=== PATIENT | male | born 1975 | race Asian ===

== ENCOUNTER 2024-05-26 14:08 | Inpatient (IN) | payer OTHER ==
[2024-05-26 15:09] VITALS: BMI 20.9
[2024-05-26] MEDS ORDERED: DICYCLOMINE HCL 10 MG CAPSULE PO PRN (15:14)
[2024-05-26] MEDS ORDERED: NALOXONE (NARCAN) HCL 4 MG/0.1 ML SPRAY NS PRN (15:14)
[2024-05-26] MEDS ORDERED: diazePAM 5 MG TABLET PO PRN (15:14)
[2024-05-26] MEDS ORDERED: LOPERAMIDE HCL 2 MG CAPSULE PO PRN (15:14)
[2024-05-26] MEDS ORDERED: MAGNESIUM HYDROX 2400MG/30ML ORAL SUSPENSION 30 ML CUP PO PRN (15:14)
[2024-05-26] MEDS ORDERED: guaiFENesin 600 MG TABLET.ER (FP) PO PRN (15:14)
[2024-05-26] MEDS ORDERED: BISMUTH SUBSALICYLATE 524 MG/30 ML PO PRN (15:14)
[2024-05-26] MEDS ORDERED: ACETAMINOPHEN 325 MG TABLET (FP) PO PRN (15:14)
[2024-05-26] MEDS ORDERED: hydrOXYzine PAMOATE 25 MG CAPSULE (FP) PO PRN (15:14)
[2024-05-26] MEDS ORDERED: ONDANSETRON *ODT* 4 MG TABLET SL PRN (15:14)
[2024-05-26] MEDS ORDERED: IBUPROFEN 400 MG TABLET (FP) PO PRN (15:14)
[2024-05-26] MEDS ORDERED: POLYETHYLENE GLYCOL (HEALTHYLAX) 3350 17 GM PACKET PO PRN (15:14)
[2024-05-26] MEDS ORDERED: BENZONATATE 200 MG CAPSULE PO PRN (15:14)
[2024-05-26] MEDS ORDERED: BENZOCAINE/MENTHOL (CHLORASEPTIC ) LOZENGE MM PRN (15:14)
[2024-05-26] MEDS ORDERED: MAG HYDROX/AL HYDROX/SIMETH 30 ML UNIT-DOSE CUP PO PRN (15:14)
[2024-05-26] MEDS: LIDOCAINE 5% TOPICAL PATCH TP SCH (15:54)
[2024-05-26] MEDS: LIDOCAINE PATCH REMOVAL MC SCH (22:10)
[2024-05-26] MEDS: THIAMINE 100 MG TABLET PO SCH (22:11)
[2024-05-26] MEDS: METHOCARBAMOL 500 MG TABLET PO PRN (22:11)
[2024-05-26] MEDS: diazePAM 5 MG TABLET PO SCH (22:11)
[2024-05-26] MEDS: MELATONIN 5 MG TABLETS PO SCH (22:11)
[2024-05-27 09:35] LABS: CHLORIDE 108 mmol/L (98-107); POTASSIUM 4.5 mmol/L (3.5-5.1); SODIUM 138 mmol/L (136-145)
[2024-05-27 09:38] LABS: ALBUMIN 3.4 g/dl (3.4-5.0); BLOOD UREA NITROGEN 12.7 mg/dL (7-18)
[2024-05-27 09:40] LABS: ANION GAP 3 mmol/L (4-13); CALCIUM 9.2 mg/dL (8.5-10.1); CO2 26 mmol/L (21-32)
[2024-05-27 09:42] LABS: CREATININE 0.9 mg/dL (0.55-1.3); GLUCOSE,RANDOM 111 mg/dL (74-106); SGPT/ALT 29 U/L (13-61)
[2024-05-27 09:44] LABS: ALK PHOS 58 U/L (45-117); BILIRUBIN,TOTAL 0.9 mg/dL (0.2-1); SGOT/AST 26 U/L (15-37); TOT PROT 6.8 g/dl (6.4-8.2)
[2024-05-27 09:46] LABS: HEMOGLOBIN 14.5 GM/dL (11.7-16.9); MCH 31.1 pg (25.7-33.7); MCHC 32.3 g/dl (32.0-35.9); MEAN CELL VOLUME 96.5 fl (80-96); MEAN PLT VOLUME 7.4 fl (7.5-11.1); PLATELET COUNT 251 10^3/uL (134-434); RBC 4.66 M/mm3 (4.00-5.60); RDW 13.2 % (11.9-15.9); WHITE BLOOD COUNT 8.4 K/mm3 (4.0-10.0)
[2024-05-27] MEDS: PRENATAL VITAMINS W/ FOLIC ACID TABLET (FP) PO SCH (10:46)
[2024-05-28] MEDS: diazePAM 5 MG TABLET PO SCH (05:59)
[2024-05-28] MEDS: IBUPROFEN 600 MG TABLET (FP) PO PRN (18:30)
[2024-05-29] MEDS: diazePAM 5 MG TABLET PO SCH (05:45)
[2024-05-29 09:29] VITALS: BP 132/78; PULSE 84; RESP 18; TEMP 97.6
[2024-05-29] MEDS: NALOXONE (NYS OPIOID OVERDOSE PROGRAM) 4 MG/0.1 ML SPRAY NS SCH (10:27)
[2024-05-30] MEDS ORDERED: diazePAM 5 MG TABLET PO ONE (06:00)
== END 2024-05-29 10:28 | disposition home or self-care (01) | DRG 775 ==
LOC: YASAS 14:08 → Y3N 15:13
PROVIDERS: ADMIT Allergy & Immunology; ATTEND Surgery
PROC: HZ2ZZZZ Detoxification Services for Substance Abuse Treatment (ICD-10-PCS; principal; 2024-05-26)
DX: F10.230 Alcohol dependence with withdrawal, uncomplicated (principal); F12.20 Cannabis dependence, uncomplicated; F17.210 Nicotine dependence, cigarettes, uncomplicated; F41.9 Anxiety disorder, unspecified; G35 Multiple sclerosis; Z87.11 Personal history of peptic ulcer disease; Z59.01 Sheltered homelessness; Z56.0 Unemployment, unspecified
CPT/HCPCS: 36415; 80053; 80305; 80307; 85027; 86780; 93005; 93010

== ENCOUNTER 2024-09-19 18:27 | Inpatient (IN) | payer OTHER ==
[2024-09-19] MEDS ORDERED: IBUPROFEN 400 MG TABLET (FP) PO PRN (20:34)
[2024-09-19] MEDS ORDERED: NICOTINE POLACRILEX 2 MG LOZENGE BC PRN (20:34)
[2024-09-19] MEDS ORDERED: NICOTINE POLACRILEX 2 MG GUM BUC PRN (20:34)
[2024-09-19] MEDS ORDERED: BENZOCAINE/MENTHOL (CHLORASEPTIC ) LOZENGE MM PRN (20:34)
[2024-09-19] MEDS ORDERED: BENZONATATE 200 MG CAPSULE PO PRN (20:34)
[2024-09-19] MEDS ORDERED: BISMUTH SUBSALICYLATE 524 MG/30 ML PO PRN (20:34)
[2024-09-19] MEDS ORDERED: LOPERAMIDE HCL 2 MG CAPSULE PO PRN (20:34)
[2024-09-19] MEDS ORDERED: guaiFENesin 600 MG TABLET.ER (FP) PO PRN (20:34)
[2024-09-19] MEDS ORDERED: ACETAMINOPHEN 325 MG TABLET (FP) PO PRN (20:34)
[2024-09-19] MEDS ORDERED: DICYCLOMINE HCL 10 MG CAPSULE PO PRN (20:34)
[2024-09-19] MEDS ORDERED: ONDANSETRON *ODT* 4 MG TABLET SL PRN (20:34)
[2024-09-19] MEDS ORDERED: MAG HYDROX/AL HYDROX/SIMETH 30 ML UNIT-DOSE CUP PO PRN (20:34)
[2024-09-19] MEDS ORDERED: NALOXONE (NARCAN) HCL 4 MG/0.1 ML SPRAY NS PRN (20:34)
[2024-09-19] MEDS ORDERED: IBUPROFEN 600 MG TABLET (FP) PO PRN (20:34)
[2024-09-19] MEDS ORDERED: POLYETHYLENE GLYCOL (HEALTHYLAX) 3350 17 GM PACKET PO PRN (20:34)
[2024-09-19] MEDS: PERMETHRIN 5% TOPICAL CREAM 60 GM TUBE TP SCH (21:25)
[2024-09-19] MEDS: MELATONIN 5 MG TABLETS PO SCH (21:35)
[2024-09-19] MEDS: diazePAM 5 MG TABLET PO PRN (21:35)
[2024-09-19] MEDS: THIAMINE 100 MG TABLET PO SCH (21:35)
[2024-09-19] MEDS ORDERED: PERMETHRIN 5% TOPICAL CREAM 60 GM TUBE ONE (21:48)
[2024-09-19] MEDS: diazePAM 5 MG TABLET PO SCH (22:26)
[2024-09-20 09:43] LABS: HEMATOCRIT 44.8 % (40.1-51.0); HEMOGLOBIN 14.1 g/dL (13.7-17.5); MCHC 31.5 g/dl (32.3-36.5); MEAN CELL VOLUME 97.4 fl (79.0-92.2); MEAN PLT VOLUME 9.1 fl (9.4-12.4); PLATELET COUNT # 277 x10^3/uL (163-337); RDW 12.8 % (12.1-15.9)
[2024-09-20 09:45] LABS: POTASSIUM 4.7 mmol/L (3.5-5.1)
[2024-09-20 09:59] LABS: ALBUMIN 3.4 g/dl (3.4-5.0); BLOOD UREA NITROGEN 15.1 mg/dL (7-18); CALCIUM 8.9 mg/dL (8.5-10.1)
[2024-09-20 10:04] LABS: TOT PROT 6.7 g/dl (6.4-8.2)
[2024-09-20] MEDS: PRENATAL VITAMINS W/ FOLIC ACID TABLET (FP) PO SCH (10:07)
[2024-09-20] MEDS: HYDROCORTISONE 1% TOPICAL OINT 30 GM TUBE TP SCH (22:49)
[2024-09-20] MEDS: METHOCARBAMOL 500 MG TABLET PO PRN (22:49)
[2024-09-21] MEDS: diazePAM 5 MG TABLET PO SCH ×2 (06:12→13:36)
[2024-09-21] MEDS: MAGNESIUM HYDROX 2400MG/30ML ORAL SUSPENSION 30 ML CUP PO PRN (17:41)
[2024-09-22] MEDS: diazePAM 5 MG TABLET PO SCH (06:18)
[2024-09-22] MEDS: NALTREXONE HCL 50 MG TABLET PO ONE (11:34)
[2024-09-23] MEDS: diazePAM 5 MG TABLET PO ONE (05:45)
[2024-09-23 09:00] VITALS: BP 128/84; PULSE 96; RESP 18; TEMP 98
[2024-09-23] MEDS: NALTREXONE HCL 50 MG TABLET PO SCH (09:10)
== END 2024-09-23 09:20 | disposition home or self-care (01) | DRG 775 ==
LOC: YASAS 18:27 → Y6N 20:54
PROVIDERS: ADMIT Allergy & Immunology; ATTEND Allergy & Immunology
PROC: HZ2ZZZZ Detoxification Services for Substance Abuse Treatment (ICD-10-PCS; principal; 2024-09-19)
DX: F10.230 Alcohol dependence with withdrawal, uncomplicated (principal); F12.20 Cannabis dependence, uncomplicated; F17.210 Nicotine dependence, cigarettes, uncomplicated; F10.24 Alcohol dependence with alcohol-induced mood disorder; F10.282 Alcohol dependence with alcohol-induced sleep disorder; F41.9 Anxiety disorder, unspecified; M19.041 Primary osteoarthritis, right hand; M19.042 Primary osteoarthritis, left hand; M54.50 Low back pain, unspecified; G89.29 Other chronic pain; R63.6 Underweight; Z68.20 Body mass index [BMI] 20.0-20.9, adult; Z87.11 Personal history of peptic ulcer disease; Z59.01 Sheltered homelessness
CPT/HCPCS: 36415; 80053; 80305; 80307; 83036; 85027; 86780